=== PATIENT | male | born 1950 | race Caucasian/White ===

== ENCOUNTER 2016-09-10 08:11 | Day surgery (SDC) | payer BC, OTHER ==
[2016-09-10 08:41] VITALS: BMI 25.5
[2016-09-10] MEDS ORDERED: PROPOFOL 20 ML ONE ×2 (08:58)
[2016-09-10] MEDS ORDERED: LIDOCAINE HCL/PF 1% SDV 5ML VIAL ONE (08:58)
[2016-09-10 09:33] VITALS: TEMP 97.7
[2016-09-10 10:22] VITALS: BP 129/73; PULSE 89
--- NOTE | 2016-09-11 13:13 | PATH ---
Surgical Pathology Report Patient Name: ЕЛЕНА FLORES [facility] Rec. #: [id number] /Age/Gender: 1950 (Age: 66) / M Account: [id number] Location: [facility]-ENDOSCOPY Taken: 09/10/2016 Received: 09/10/2016 Reported: 09/11/2016 Physicians: Noe Stephens D.O. Specimen(s) Received A: BX DUODENAL NODULE B: BX ANTRAL NODULES C: BX ANTRUM & BODY D: BX GE JUNCTION Clinical History Acid reflux Duodenal and antral nodules, nodular gastritis, duodenitis Final Diagnosis A. DUODENAL NODULE, BIOPSY: POLYPOID FRAGMENTS OF DUODENAL MUCOSA WITH MARKED ACTIVE AND CHRONIC INFLAMMATION WITH FOCAL SURFACE ULCERATION AND EXTENSIVE GASTRIC METAPLASIA AND SURFACE HYPERPLASTIC CHANGE CONSISTENT WITH POLYPOID ACTIVE PEPTIC DUODENITIS. NEGATIVE FOR DYSPLASIA/ADENOMA. B. STOMACH, ANTRAL NODULE, BIOPSY: GASTRIC ANTRAL MUCOSA WITH MODERATE CHRONIC GASTRITIS WITH LAMINA PROPRIA FIBROSIS AND MARKED REACTIVE GASTROPATHY WITH SURFACE HYPERPLASTIC CHANGE. NEGATIVE FOR DYSPLASIA. IMMUNOSTAIN FOR H. PYLORI IS NEGATIVE FOR ORGANISMS. C. STOMACH, ANTRUM AND BODY, BIOPSY: GASTRIC ANTRAL MUCOSA WITH MODERATE CHRONIC GASTRITIS. IMMUNOSTAIN FOR H. PYLORI IS NEGATIVE FOR ORGANISMS. D. GE JUNCTION, BIOPSY: SQUAMOCOLUMNAR JUNCTIONAL MUCOSA WITH ACTIVE AND CHRONIC INFLAMMATION WITH SURFACE EROSION AND REFLUX TYPE CHANGES. NO DEFINITIVE INTESTINAL METAPLASIA (QUINTANA'S ESOPHAGUS) IDENTIFIED. Electronically Signed Tariq Anderson M.D. Gross Description A. Received in formalin, labeled "biopsy duodenal nodule" are 3 sanchez, irregular portions of soft tissue ranging from 0.1-0.3 cm in greatest dimension. The specimens are submitted in toto in one cassette. B. Received in formalin, labeled "biopsy antral nodule" are 4 sanchez, irregular portions of soft tissue ranging from 0.3-0.4 cm in greatest dimension. The specimens are submitted in toto in one cassette. C. Received in formalin, labeled "biopsy antrum and body" is a sanchez, irregular portion of soft tissue measuring 0.4 cm in greatest dimension. The specimen is submitted in toto in one cassette. D. Received in formalin, labeled "biopsy GE junction" are 2 sanchez, irregular portions of soft tissue measuring 0.1 and 0.3 cm in greatest dimension. The specimens are submitted in toto in one cassette. DL/09/10/2016 [facility]09/10/2016
== END 2016-09-10 10:25 | disposition home or self-care (01) ==
LOC: JASU-ENDO 08:11
PROVIDERS: ATTEND Internal Medicine Gastroenterology
PROC: 0DB98ZX Excision of Duodenum, Via Natural or Artificial Opening Endoscopic, Diagnostic (ICD-10-PCS; 2016-09-10)
PROC: 0DB68ZX Excision of Stomach, Via Natural or Artificial Opening Endoscopic, Diagnostic (ICD-10-PCS; 2016-09-10)
PROC: 0DB48ZX Excision of Esophagogastric Junction, Via Natural or Artificial Opening Endoscopic, Diagnostic (ICD-10-PCS; principal; 2016-09-10 09:00)
DX: K25.9 Gastric ulcer, unspecified as acute or chronic, without hemorrhage or perforation (principal); K29.50 Unspecified chronic gastritis without bleeding
CPT/HCPCS: 36415; 82941; 88305-TC; 88342-TC

== ENCOUNTER 2019-02-14 08:15 | Day surgery (SDC) | payer BC ==
[2019-02-13 13:15] VITALS: BMI 26.1
[2019-02-14 09:44] VITALS: TEMP 98.1
[2019-02-14 10:12] VITALS: PULSE 93
[2019-02-14 10:38] VITALS: BP 136/91
--- NOTE | 2019-02-15 20:22 | PATH ---
Surgical Pathology Report Patient Name: JOHNNY FLORES [facility]. Rec. #: [id number] /Age/Gender: 1950 (Age: 68) / M Account: [id number] Location: [facility]-ENDOSCOPY Taken: 02/13/2019 Received: 02/14/2019 Reported: 02/15/2019 Physicians: Noe Stephens D.O. Specimen(s) Received A: RECTOSIGMOID POLYP B: PROXIMAL TRANSVERSE COLON POLYP C: CECUM POLYP D: SIGMOID COLON POLYP Clinical History Benign neoplasm of colon Postoperative diagnosis: Colon polyps, hemorrhoid Final Diagnosis A. RECTOSIGMOID COLON, POLYP, POLYPECTOMY: SESSILE SERRATED POLYP. B. PROXIMAL TRANSVERSE COLON, POLYP, BIOPSY: TUBULAR ADENOMA. C. CECUM, POLYP, POLYPECTOMY: TUBULAR ADENOMA. D. SIGMOID COLON, POLYP, BIOPSY: HYPERPLASTIC POLYP. Electronically Signed Cat Garza M.D. Gross Description A. Received in formalin, labeled "polyp rectosigmoid" are 3 sanchez-brown polypoid portions of soft tissue ranging from 0.5-0.7 cm. in greatest dimension. The specimens are submitted in toto in one cassette. B. Received in formalin, labeled "biopsy polyp proximal transverse colon" is a sanchez, irregular portion of soft tissue measuring 0.3 cm. in greatest dimension. The specimen is submitted in toto in one cassette. C. Received in formalin, labeled "polyp from cecum" are 2 sanchez, irregular portions of soft tissue measuring 0.2 and 0.4 cm. in greatest dimension. The specimens are submitted in toto in one cassette. D. Received in formalin, labeled "biopsy polyp sigmoid colon" are 2 sanchez, irregular portions of soft tissue measuring 0.2 and 0.3 cm. in greatest dimension. The specimens are submitted in toto in one cassette. 02/14/2019 saudi02/14/2019
== END 2019-02-14 10:36 | disposition home or self-care (01) ==
LOC: JASU-ENDO 08:15
PROVIDERS: ATTEND Internal Medicine Gastroenterology
PROC: 0DBN8ZX Excision of Sigmoid Colon, Via Natural or Artificial Opening Endoscopic, Diagnostic (ICD-10-PCS; 2019-02-14)
PROC: 0DBN8ZX Excision of Sigmoid Colon, Via Natural or Artificial Opening Endoscopic, Diagnostic (ICD-10-PCS; 2019-02-14)
PROC: 0DBH8ZX Excision of Cecum, Via Natural or Artificial Opening Endoscopic, Diagnostic (ICD-10-PCS; principal; 2019-02-14 09:00)
DX: Z86.010 Personal history of colon polyps (principal); D12.0 Benign neoplasm of cecum; D12.3 Benign neoplasm of transverse colon; D21.5 Benign neoplasm of connective and other soft tissue of pelvis; D12.7 Benign neoplasm of rectosigmoid junction; I10 Essential (primary) hypertension; E11.9 Type 2 diabetes mellitus without complications; M10.9 Gout, unspecified; K64.8 Other hemorrhoids
CPT/HCPCS: 88305-TC

== ENCOUNTER 2019-02-28 08:17 | Day surgery (SDC) | payer BC ==
[2019-02-28 08:45] VITALS: BMI 26.6
[2019-02-28 09:37] VITALS: TEMP 97.5
[2019-02-28 11:28] VITALS: BP 119/77; PULSE 87
--- NOTE | 2019-03-01 17:25 | PATH ---
Surgical Pathology Report Patient Name: JOHNNY FLORES [facility]. Rec. #: [id number] /Age/Gender: 1950 (Age: 68) / M Account: [id number] Location: [facility]-ENDOSCOPY Taken: 02/28/2019 Received: 02/28/2019 Reported: 03/01/2019 Physicians: Noe Stephens D.O. Specimen(s) Received A: FIRST PORTION DUODENUM B: PREPYLORIC NODULES C: ANTRUM NODULE D: STOMACH BODY E: ESOPHAGEAL POLYP Clinical History GERD, gastric adenoma Postoperative diagnosis: Gastritis Final Diagnosis A. DUODENUM, FIRST PORTION, BIOPSY: POLYPOID DUODENAL MUCOSA WITH MILD CHRONIC DUODENITIS AND JACOBO'S GLAND HYPERPLASIA. B. PREPYLORIC NODULES, BIOPSY: GASTRIC MUCOSA WITH MILD TO MODERATE CHRONIC GASTRITIS. IMMUNOHISTOCHEMICAL STAIN FOR H. PYLORI IS NEGATIVE. C. STOMACH, ANTRAL NODULE, BIOPSY: GASTRIC ANTRAL MUCOSA WITH MILD CHRONIC GASTRITIS. IMMUNOHISTOCHEMICAL STAIN FOR H. PYLORI IS NEGATIVE. D. STOMACH, BODY, BIOPSY: GASTRIC BODY MUCOSA WITH MILD CHRONIC GASTRITIS. IMMUNOHISTOCHEMICAL STAIN FOR H. PYLORI IS NEGATIVE. E. ESOPHAGEAL POLYP, 25 CM, BIOPSY: SQUAMOUS PAPILLOMA. Electronically Signed Cat Garza M.D. Gross Description A. Received in formalin, labeled "first portion of duodenum biopsy" are 5 sanchez, irregular portions of soft tissue ranging from 0.2-0.4 cm. in greatest dimension. The specimens are submitted in toto in one cassette. B. Received in formalin, labeled "prepyloric nodules" are 4 sanchez, irregular portions of soft tissue ranging from 0.1-0.5 cm. in greatest dimension. The specimens are submitted in toto in one cassette. C. Received in formalin, labeled "antral nodule biopsy" is a sanchez, irregular portion of soft tissue measuring 0.5 cm. in greatest dimension. The specimen is submitted in toto in one cassette. D. Received in formalin, labeled "body of stomach biopsy" are 2 sanchez, irregular portions of soft tissue averaging 0.3 cm. in greatest dimension. The specimens are submitted in toto in one cassette. E. Received in formalin, labeled "esophageal polyp at 25 cm biopsy" are 2 sanchez, irregular portions of soft tissue measuring 0.1 and 0.4 cm. in greatest dimension. The specimens are submitted in toto in one cassette. 02/28/2019 saudi02/28/2019
== END 2019-02-28 10:25 | disposition home or self-care (01) ==
LOC: JASU-ENDO 08:17
PROVIDERS: ATTEND Internal Medicine Gastroenterology
PROC: 0DB68ZX Excision of Stomach, Via Natural or Artificial Opening Endoscopic, Diagnostic (ICD-10-PCS; 2019-02-28)
PROC: 0DB58ZX Excision of Esophagus, Via Natural or Artificial Opening Endoscopic, Diagnostic (ICD-10-PCS; 2019-02-28)
PROC: 0DB98ZX Excision of Duodenum, Via Natural or Artificial Opening Endoscopic, Diagnostic (ICD-10-PCS; principal; 2019-02-28 09:00)
DX: K21.9 Gastro-esophageal reflux disease without esophagitis (principal); K31.7 Polyp of stomach and duodenum; K29.50 Unspecified chronic gastritis without bleeding; K29.80 Duodenitis without bleeding; D13.0 Benign neoplasm of esophagus; I10 Essential (primary) hypertension; E11.9 Type 2 diabetes mellitus without complications; Z79.84 Long term (current) use of oral hypoglycemic drugs
CPT/HCPCS: 82962; 88305-TC; 88342-TC

== ENCOUNTER 2019-07-07 18:44 | Inpatient (IN) | payer BC, OTHER ==
[2019-07-07] MEDS ORDERED: SODIUM CHLORIDE 2,381 ML IV ONE (19:13)
[2019-07-07] MEDS ORDERED: ACETAMINOPHEN 1000 MG/100 ML VIAL (NON FORMULARY) IVPB ONE (19:14)
[2019-07-07 20:37] LABS: VENOUS PC02 40.7 mmHg (38-52); VENOUS PH 7.43 (7.31-7.41)
--- NOTE | 2019-07-07 20:38 | PDOC ---
Documentation entered by Chester Jordan SCRIBE, acting as scribe for Angelica Fregoso MD. Angelica Fregoso MD: This documentation has been prepared by the Nikki acharya Nirvannie, SCRIBE, under my direction and personally reviewed by me in its entirety. I confirm that the documentation accurately reflects all work, treatment, procedures, and medical decision making performed by me. History of Present Illness - General Chief Complaint: Syncope/Near Syncope Stated Complaint: R/O SEPSIS Time Seen by Provider: 07/07/19 19:13 History Source: Patient Exam Limitations: No Limitations - History of Present Illness Initial Comments: 07/07/19 20:39 68YOF with significant past medical history of hypertension, T2DM, GERD, gout, syncope (1 yr ago), chronic urinary frequency, and vertigo(recent diagnosis 1 mo ago) who presents to the ED with near syncope. As per patient, today at approximately 3PM he experienced sudden onset nausea with vomiting prompting him to go to the bathroom at which time he experienced an episode of lightheadedness and generalized weakness. at bedside notes he has been increasingly lethargic /sleepy for the past 1 week and on one occasion going to bed at 7pm. Patient endorses a nasal congestion, nonproductive cough, and issues with his balance when attempting to pick objects up from the floor for the past several weeks. He notes a recent bout of conjunctivitis treated with unknown antibiotics. Family at bedside notes his blood glucose level was 262 and blood pressure was 150/90mmHg (baseline normally 120 systolic) just prior to his arrival. Patient is positive for sick contacts, granddaughter who is up to date with vaccinations and with URI sx. While in the ED, patient endorses a headache and is febrile to 102.1F. Family is unaware if he presented with similar symptoms when he was diagnosed with bilateral pneumonia 30+ years ago. He denies any recent loss of consciousness, visual disturbances, or hearing disturbances. He denies any altered mental status, paresthesias, or focal weakness. Denies chest pain, SOB, palpitation, dizziness, D, abdominal pain, bladder and bowel problems, leg swelling, No travel. No new changes in medications. no trauma. Allergies: Hay fever. Past Medical History: Hypertension, T2DM, GERD, gout, syncope (1 yr ago), chronic urinary frequency, and vertigo(recent diagnosis 1 mo ago) Social history: Lives with family. No tobacco, ETOH or drug use. Surgical history: Appendectomy. Meds: as documented in EMR PMD: Dr. Carlos Rhodes Senior Mobile Web Developer: Dr. Lafleur 07/07/19 22:44 Past History - Past Medical History Allergies/Adverse Reactions: Allergies Allergy/AdvReac Type Severity Reaction Status Date / Time No Known Drug Allergies Allergy Verified 07/07/19 20:32 HAY FEVER Allergy Severe Swelling Uncoded 07/07/19 20:31 Home Medications: Ambulatory Orders Allopurinol [Zyloprim -] 300 mg PO DAILY 09/19/12 Finasteride [Proscar -] 5 mg PO DAILY 09/19/12 Losartan Potassium 100 mg PO DAILY 09/19/12 [place]-3 Acid Ethyl Esters [Lovaza -] 2,000 mg PO BID 09/19/12 Rosuvastatin Calcium [Crestor] 10 mg PO HS 09/19/12 metFORMIN HCL [Glucophage] 1,000 mg PO BID 09/19/12 Sitagliptin Phosphate [Januvia] 1 tab PO DAILY 01/14/15 Aspirin [ASA -] 81 mg PO DAILY #0 01/15/15 Pregabalin [Lyrica] 1 tab PO BID 05/22/15 Acarbose [Precose -] 25 mg PO BID 09/09/16 Ranitidine [Zantac -] 150 mg PO BID 09/09/16 Anemia: No Asthma: No Cancer: No Cardiac Disorders: No CVA: No COPD: No CHF: No Dementia: No Diabetes: Yes (NIDDM) GI Disorders: Yes (H/O GASTRIC ADENOMA,COLON POLYPS) Disorders: No HTN: Yes Hypercholesterolemia: Yes Liver Disease: No Seizures: No Thyroid Disease: No - Surgical History Abdominal Surgery: No Appendectomy: Yes Cardiac Surgery: No Cholecystectomy: No Lung Surgery: No Neurologic Surgery: No Orthopedic Surgery: No - Psycho Social/Smoking Cessation Hx Smoking History: Never smoked Have you smoked in the past 12 months: No Information on smoking cessation initiated: No Hx Alcohol Use: No Drug/Substance Use Hx: No Substance Use Type: None Hx Substance Use Treatment: No Review of Systems - Review of Systems Able to Perform ROS?: Yes Comments:: 07/07/19 20:40 Constitutional: +Fevers. no chills. +generalized malaise/weakness HEENT: +Headache. +dizziness. +congestion. No visual/hearing disturbances. CVS: no cp or syncope. +Pre-syncope. Resp: no sob. +cough. Gastrointestinal: no abdominal pain. + nausea +vomiting. Genitourinary: no urinary sx, hematuria. MUSCULOSKELETAL: No joint pain and swelling. No neck or back pain. SKIN: no redness or skin changes, no discharge, no rash. No wounds. Hematologic: no easy bruising/bleeding. NEUROLOGIC: +PINEDA, +dizziness, No LOC or altered mental status. +Weakness. No numbness or tingling. Psych: no anxiety or depression Allergic/Immunologic: environmental allergies All other systems reviewed and negative, or as documented in HPI. 07/07/19 22:45 *Physical Exam - Vital Signs Last Vital Signs Temp Pulse Resp BP Pulse Ox 102.1 F H 132 H 20 159/83 97 07/07/19 19:09 07/07/19 18:49 07/07/19 18:49 07/07/19 18:49 07/07/19 18:49 - Physical Exam 07/07/19 20:40 General: +Malaise appearing. awake and alert HEENT: NCAT, PERRL, EOMI, clear conjunctiva, anicteric, dry mucous membranes, clear oropharynx, no oral lesions.. Neck: neck supple, FROM Resp: CTAB, normal and even respirations, no respiratory distress CVS: +Tachycardic. +Holosystolic murmur., 2+ peripheral pulses throughout, no peripheral edema Abdomen: soft, NTND, no rebound or guarding. No CVAT. Back: nontender, normal inspection and ROM MSK: no edema, WHITE x4, ROM intact. No clubbing or cyanosis. normal bulk and tone. Extremities: no calf tenderness Neuro: alert, oriented appropriately; no focal neurologic deficits, speech clear Skin: warm and well perfused, cap refill <2 sec, normal color, no rash 07/07/19 22:46 Heart Score/ECG Review #1 07/07/19 19:25 EKG performed at 18:54: Sinus tachycardia at 133 bpm, Normal DC interval, Narrow QRS duration, nonspecific T-wave abnormalities. ED Treatment Course - LABORATORY CBC & Chemistry Diagram: 07/07/19 20:10 07/07/19 20:10 - RADIOLOGY Radiology Studies Ordered: Category Date Time Status CHEST X-RAY PORTABLE* [RAD] Stat Radiology 07/07/19 19:14 Taken Chest X-Ray Result: No Infiltrates Radiograph Interpretation: 07/07/19 20:38 Interpreted by ED Physician: CXR (2 view): no acute abnormality: no infiltrates , bones appear intact and structures normal alignment, cardiac silhouette within normal limits. no free air under diaphragm, no pneumothorax. Similar to prior chest x-ray Medical Decision Making - Medical Decision Making 07/07/19 20:37 Vital Signs Temp Pulse Resp BP Pulse Ox 102.1 F H 132 H 20 159/83 97 07/07/19 19:09 07/07/19 18:49 07/07/19 18:49 07/07/19 18:49 07/07/19 18:49 Vital signs notable for fever and tachycardia, normal saturations and breathing comfortably. Patient is alert and oriented appropriately, no respiratory distress. Differential diagnosis includes viral syndrome, upper respiratory infection, pneumonia, influenza, ACS, arrhythmia, dehydration, anemia, electrolyte/ metabolic derangements, infection, syncope No trauma or head injury Basic work-up including labs, electrolytes, lactic, cultures of the urine/blood , influenza swab, chest x-ray Chest x-ray appears clear no evidence of pneumonia, trachea is midline, normal cardiac silhouette, no focal opacities or infiltrate or consolidation, clear sharp costophrenic angles will do CT chest to eval for PNA. given severity of sx lactic 2.6, will hydrate and recheck given sepsis bolus of fluids >2L NSS leukocytosis 13.4K, with neutrophilic shift. lytes and Cr wnl. cultures pending. repeat VS improving, tachy downtrending to 115, defervescing, additional toradol for antipyretic flu neg. CT chest with RLL infiltrate, will treat as early pna, ceftriaxone and azithromycin for CAP admit to hospitalist service for near syncope, severe sepsis likely 2/2 viral syndrome/URI vs pneumonia, will treat for the CAP given clinical presentation and sx. admitting to Dr Keith. s.o Dr Mei/William. 07/07/19 22:46 07/07/19 22:51 Discharge - Discharge Information Problems reviewed: Yes Clinical Impression/Diagnosis: Syncope, near, Severe sepsis, Pneumonia Condition: Guarded - Admission Yes - Follow up/Referral - Patient Discharge Instructions - Post Discharge Activity
[2019-07-07 20:39] LABS: VENOUS PO2 52.8 mmHg (28-48)
[2019-07-07 20:48] LABS: BASO % 0.4 % (0-2.0); EOS % 0.2 % (0-4.5); HEMATOCRIT 37.4 % (35.4-49); HEMOGLOBIN 12.5 GM/dL (11.7-16.9); LYMPH % 5.7 % (8-40); MCH 28.9 pg (25.7-33.7); MCHC 33.4 g/dl (32.0-35.9); MEAN CELL VOLUME 86.6 fl (80-96); MEAN PLT VOLUME 8.5 fl (7.5-11.1); MONO % 5.6 % (3.8-10.2); NEUT % 88.1 % (42.8-82.8); PLATELET COUNT 164 K/MM3 (134-434); RBC 4.32 M/mm3 (4.00-5.60); RDW 16.5 % (11.9-15.9); WHITE BLOOD COUNT 13.4 K/mm3 (4.0-10.0)
[2019-07-07 21:15] LABS: ALBUMIN 3.7 g/dl (3.4-5.0); BILIRUBIN,TOTAL 0.5 mg/dL (0.2-1); BLOOD UREA NITROGEN 33.2 mg/dL (7-18); CALCIUM 9.3 mg/dL (8.5-10.1); CREATININE 1.3 mg/dL (0.55-1.3); POTASSIUM 3.5 mmol/L (3.5-5.1); TOT PROT 6.9 g/dl (6.4-8.2)
[2019-07-07] MEDS ORDERED: CEFTRIAXONE 1,000 MG in DEXTROSE 5%-WATER - 50 ML IVPB ONE (21:38)
[2019-07-07] MEDS ORDERED: AZITHROMYCIN 500 MG TABLET PO ONE (21:38)
[2019-07-07] MEDS ORDERED: CEFTRIAXONE 1 GM/50 ML BAG ONE (21:42)
[2019-07-07] MEDS ORDERED: AZITHROMYCIN 250 MG TABLET ONE (21:42)
--- NOTE | 2019-07-07 22:33 | PN ---
Teaching Attending Note Name of Resident: Al Mei ATTENDING PHYSICIAN STATEMENT I saw and evaluated the patient. I reviewed the resident's note and discussed the case with the resident. I agree with the resident's findings and plan as documented. SUBJECTIVE: Patient is a 68 year old woman with a PMH of NIDDM, Hypertension, GERD, Gout, Syncope (1 yr ago), Chronic urinary frequency, and Vertigo (recent diagnosis 1 month ago) who presents to the ER after an episode of near syncope. As per patient, today at approximately 3PM he experienced sudden onset nausea with vomiting prompting him to go to the bathroom at which time he experienced an episode of pre-syncope and felt increasingly weak. at bedside notes he has been increasingly lethargic for the past 7-10 days and on one occasion going to bed at 7pm. Patient has nasal congestion, nonproductive cough, and issues with his balance when attempting to pick objects up from the floor for the past several weeks. He notes a recent bout of conjunctivitis treated with unknown antibiotics. Family at bedside notes his blood glucose level was 262 and blood pressure was 150/90 mmHg (baseline normally 120 systolic) just prior to his arrival. Patient is positive for sick contacts - granddaughter who is up to date with vaccinations. While in the ER, patient complains of headache and is febrile to 102.1F. He denies any recent loss of consciousness, visual disturbances, or hearing disturbances. He denies any altered mental status, paresthesias, or focal weakness. Denies chest pain, SOB, palpitation, dizziness, abdominal pain, bladder problems or leg swelling. Has had constipation. No travel. No new changes in medications. OBJECTIVE: Alert and not orthostatic Vital Signs Period Temp Pulse Resp BP Sys/Flores Pulse Ox Last 24 Hr 97.4 F-102.1 F 132 20 159/83 97 HEENT: No Jaundice, eye redness or discharge, PERRLA, EOMI. Normocephalic, atraumatic. External ears are normal and hearing is grossly intact. No nasal discharge. Neck: Supple, nontender. No palpable adenopathy or thyromegaly. No JVD Chest: Good effort. Clear to auscultation and percussion. Heart: Regular. No S3 or rub; 2/6 HSM Abdomen: Not distended, soft, nontender and no HSM. No rebound or guarding. Normal bowel sounds. Ext: Peripheral pulses intact. No leg edema. Amputated left 4h digit. Skin: Warm and dry. No petechiae, rash or ecchymosis. Neuro: Alert. Oriented x3. CN 2-12 grossly intact. Sensation grossly intact in all four extremities and DTR are symmetric. Psych: Appropriate mood and affect. Good insight. Home Medications Medication Instructions Recorded Allopurinol [Zyloprim -] 300 mg PO DAILY 09/19/12 Finasteride [Proscar -] 5 mg PO DAILY 09/19/12 Losartan Potassium 100 mg PO DAILY 09/19/12 [place]-3 Acid Ethyl Esters [Lovaza 2,000 mg PO BID 09/19/12 -] Rosuvastatin Calcium [Crestor] 10 mg PO HS 09/19/12 metFORMIN HCL [Glucophage] 1,000 mg PO BID 09/19/12 Sitagliptin Phosphate [Januvia] 1 tab PO DAILY 01/14/15 Aspirin [ASA -] 81 mg PO DAILY #0 01/15/15 Pregabalin [Lyrica] 1 tab PO BID 05/22/15 Acarbose [Precose -] 25 mg PO BID 09/09/16 Ranitidine [Zantac -] 150 mg PO BID 09/09/16 Abnormal Lab Results 07/07/19 07/07/19 07/07/19 20:03 20:10 20:10 WBC 13.4 H RDW 16.5 H Absolute Neuts (auto) 11.9 H Neutrophils % 88.1 H D Lymphocytes % 5.7 L D VBG pH POC VBG pO2 VBG O2 Sat (Annette) VBG Base Excess BUN 33.2 H Random Glucose 234 H Lactic Acid 2.6 H* 07/07/19 20:10 WBC RDW Absolute Neuts (auto) Neutrophils % Lymphocytes % VBG pH 7.43 H POC VBG pO2 52.8 H VBG O2 Sat (Annette) 82.2 H VBG Base Excess 2.6 H BUN Random Glucose Lactic Acid ASSESSMENT AND PLAN: 1. Sepsis due to Pneumonia/Near syncope - CXR shows no acute abnormality. preliminary reading of chest CT by ER staff showed RLL infiltrate. Flu swab was negative. EKG shows sinus tachycardia with no significant ST-T wave changes. Sepsis workup done and patient being treated with IV Rocephin and Azithromycin. Near syncope likely signals toxic metabolic encephalopathy due to sepsis. No indication for head CT at this time - if he fails to return to his baseline with hydration and antibiotics, then a head CTt will be warranted. Getting IV NS according to sepsis protocol and will trend lactic acid. Use Miralax bid to treat constipation. Will continue comprehensive care for all of patients comorbid conditions. 2. Uncontrolled DM For now, we will hold the home diabetes drugs and implement sliding scale insulin regimen. Provide comprehensive diabetes care with patient teaching and counseling about the importance of adherence to prescribed diabetes regimen, euglycemia, eye care and foot care. 3. Hypertension - Restart suitable outpatient antihypertensive drugs when clinically appropriate. Revise regimen to ensure [id number] excellent BP control and school adjustment counselor patient on the injurious effects of uncontrolled hypertension. Nonpharmacologic measures to control hypertension like weight loss , salt restriction and exercise discussed. Importance of adherence to treatment regimen and attainment of normotension emphasized. 4. DVT prophylaxis - Lovenox 40 mg SQ q 24 hours. 5. Advance directives - Full code
[2019-07-07] MEDS ORDERED: KETOROLAC TROMETHAMINE 15 MG/ML VIAL IVPUSH ONE (22:44)
[2019-07-07] MEDS ORDERED: KETOROLAC TROMETHAMINE 15 MG/ML VIAL ONE (22:52)
[2019-07-07 23:06] LABS: EPI CELLS 0.9 /HPF (0-5/HPF); HYALINE CASTS 1 /lpf (0-8); URINE APPEARANCE CLEAR; URINE BACTERIA 0 /hpf (NEGATIVE); URINE BILIRUBIN NEGATIVE (NEGATIVE); URINE COLOR YELLOW; URINE GLUCOSE (UA) NEGATIVE (NEGATIVE); URINE KETONE NEGATIVE (NEGATIVE); URINE LEUK ESTERASE NEGATIVE (NEGATIVE); URINE NITRITE NEGATIVE (NEGATIVE); URINE PROTEIN 2+ (NEGATIVE); URINE RBC 1 /hpf (0-4); URINE UROBILINOGEN 0.2 mg/dL (0.2-1.0); URINE WBC 1 /hpf (0-5)
--- NOTE | 2019-07-07 23:20 | HP ---
CHIEF COMPLAINT: Feeling unwell suddenly PCP: Dr. Carlos Rhodes Card: Dr. Lafleur Endo: Dr. Humphrey HISTORY OF PRESENT ILLNESS: 68 y/o male PMH HTN, DM2, GERD, gout, and vertigo c/o of acute onset of vague constitutional symptoms followed by period of confusion. Pt states he was in his basement level wood-shop around 14:00 on 07 Jul 2019, when he suddenly felt chills and no other symptoms. He then went home, proceeded to attempt a BM and began to sweat, feel cold, and felt weak. He did not complete his BM and afterwards his noticed slurred speech/mumbling. He never lost consciousness, had no tongue biting, aura, numbness/tingling or vision change. He states he also developed a non-productive cough. His sweating continued and he came to the ED. In the ED his rectal temp was 103.1, was tachycardic 115, and he was tachypnic 20. He denies night sweats, weight loss, and fever. He has been nauseous, vomiting clear stomach content (NBNB). Denies fever, travel, new food/meds/herbs/supplements. He denies vision changes, SOB, CP and abdominal pain. 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 HAY FEVER Allergy (Severe, Uncoded 07/07/19 20:31) Swelling HOME MEDICATIONS: Medication Instructions Recorded Allopurinol [Zyloprim -] 300 mg PO DAILY 09/19/12 Finasteride [Proscar -] 5 mg PO DAILY 09/19/12 Losartan Potassium 100 mg PO DAILY 09/19/12 Hurley-3 Acid Ethyl Esters[Lovaza 2,000 mg PO BID 09/19/12 Rosuvastatin Calcium [Crestor] 10 mg PO HS 03/04/13 metFORMIN HCL [Glucophage] 1,000 mg PO BID 09/19/12 Sitagliptin Phosphate [Januvia] 1 tab PO DAILY 01/14/15 Aspirin [ASA -] 81 mg PO DAILY #0 01/15/15 Pregabalin [Lyrica] 1 tab PO BID 05/22/15 Acarbose [Precose -] 25 mg PO BID 09/09/16 Ranitidine [Zantac -] 150 mg PO BID 09/09/16 REVIEW OF SYSTEMS CONSTITUTIONAL: Absent: fever, chills, diaphoresis, generalized weakness, malaise, loss of appetite, weight change HEENT: Absent: rhinorrhea, nasal congestion, throat pain, throat swelling, difficulty swallowing, mouth swelling, ear pain, eye pain, visual changes CARDIOVASCULAR: Absent: chest pain, syncope, palpitations, irregular heart rate, lightheadedness , peripheral edema RESPIRATORY: Absent: cough, shortness of breath, dyspnea with exertion, orthopnea, wheezing, stridor, hemoptysis GASTROINTESTINAL: Absent: abdominal pain, abdominal distension, nausea, vomiting, diarrhea, constipation, melena, hematochezia GENITOURINARY: Absent: dysuria, frequency, urgency, hesitancy, hematuria, flank pain, genital pain MUSCULOSKELETAL: Absent: myalgia, arthralgia, joint swelling, back pain, neck pain SKIN: Absent: rash, itching, pallor HEMATOLOGIC/IMMUNOLOGIC: Absent: easy bleeding, easy bruising, lymphadenopathy, frequent infections ENDOCRINE: Absent: unexplained weight gain, unexplained weight loss, heat intolerance, cold intolerance NEUROLOGIC: Absent: headache, focal weakness or paresthesias, dizziness, unsteady gait, seizure, mental status changes, bladder or bowel incontinence PSYCHIATRIC: Absent: anxiety, depression, suicidal or homicidal ideation, hallucinations. PHYSICAL EXAMINATION Vital Signs - 24 hr 07/07/19 07/07/19 07/07/19 18:49 19:09 22:38 Temperature 97.4 F L 102.1 F H Pulse Rate 132 H Pulse Rate [ 115 H Right] Respiratory 20 20 Rate Blood Pressure 159/83 Blood Pressure 116/71 [Right Arm] O2 Sat by Pulse 97 95 Oximetry (%) 07/07/19 22:45 Temperature 100.1 F H Pulse Rate Pulse Rate [ Right] Respiratory Rate Blood Pressure Blood Pressure [Right Arm] O2 Sat by Pulse Oximetry (%) GENERAL: AOx3, in no acute distress. HEAD: NCAT EYES: MARI, EOMI, conjunctiva clear. ENT: Ears normal, nares patent, oropharynx clear without exudates. Moist mucous membranes. NECK: Normal range of motion, supple without lymphadenopathy, JVD, or masses. LUNGS: CTAB. No wheezes, and no crackles. No accessory muscle use. HEART: RRR s1 s2 ABDOMEN: Soft, obese, BS present in all 4 quadrants, non-distended, no JVD, MUSCULOSKELETAL: No bony deformities or tenderness. No CVA tenderness. UPPER EXTREMITIES: LEFT 4th digit amputated at 4th digit. 2+ pulses, warm, well- perfused. No cyanosis. No clubbing. No peripheral edema. LOWER EXTREMITIES: 2+ pulses, warm, well-perfused. No calf tenderness. No peripheral edema. NEUROLOGICAL: No focal deficits. Cranial nerves II-XII intact. Normal speech. Gait not appreciated. PSYCHIATRIC: Cooperative. Good eye contact. Appropriate mood and affect. SKIN: Warm, dry, normal turgor, no rashes or lesions noted, normal capillary refill. Laboratory Results - last 24 hr 07/07/19 07/07/19 07/07/19 20:03 20:10 20:10 WBC 13.4 H RBC 4.32 Hgb 12.5 Hct 37.4 MCV 86.6 MCH 28.9 MCHC 33.4 RDW 16.5 H Plt Count 164 MPV 8.5 D Absolute Neuts (auto) 11.9 H Neutrophils % 88.1 H D Lymphocytes % 5.7 L D Monocytes % 5.6 Eosinophils % 0.2 D Basophils % 0.4 Nucleated RBC % 0 VBG pH POC VBG pCO2 POC VBG pO2 VBG HCO3 VBG O2 Sat (Annette) VBG Base Excess Sodium Potassium Chloride Carbon Dioxide Anion Gap BUN Creatinine Est GFR (CKD-EPI)AfAm Est GFR (CKD-EPI)NonAf Random Glucose Lactic Acid 2.6 H* Calcium Total Bilirubin AST ALT Alkaline Phosphatase Troponin I < 0.02 Total Protein Albumin Urine Color Urine Appearance Urine pH Ur Specific [place] Urine Protein Urine Glucose (UA) Urine Ketones Urine Blood Urine Nitrite Urine Bilirubin Urine Urobilinogen Ur Leukocyte Esterase Urine WBC (Auto) Urine RBC (Auto) Urine Casts (Auto) U Epithel Cells (Auto) Urine Bacteria (Auto) Influenza A (Rapid) Influenza B (Rapid) 07/07/19 07/07/19 07/07/19 20:10 20:10 20:10 WBC RBC Hgb Hct MCV MCH MCHC RDW Plt Count MPV Absolute Neuts (auto) Neutrophils % Lymphocytes % Monocytes % Eosinophils % Basophils % Nucleated RBC % VBG pH 7.43 H POC VBG pCO2 40.7 POC VBG pO2 52.8 H VBG HCO3 26.6 VBG O2 Sat (Annette) 82.2 H VBG Base Excess 2.6 H Sodium 138 Potassium 3.5 Chloride 102 Carbon Dioxide 27 Anion Gap 9 BUN 33.2 H Creatinine 1.3 Est GFR (CKD-EPI)AfAm 64.52 Est GFR (CKD-EPI)NonAf 55.67 Random Glucose 234 H Lactic Acid Calcium 9.3 Total Bilirubin 0.5 AST 18 ALT 26 Alkaline Phosphatase 84 Troponin I Total Protein 6.9 Albumin 3.7 Urine Color Urine Appearance Urine pH Ur Specific [place] Urine Protein Urine Glucose (UA) Urine Ketones Urine Blood Urine Nitrite Urine Bilirubin Urine Urobilinogen Ur Leukocyte Esterase Urine WBC (Auto) Urine RBC (Auto) Urine Casts (Auto) U Epithel Cells (Auto) Urine Bacteria (Auto) Influenza A (Rapid) Negative Influenza B (Rapid) Negative 07/07/19 22:00 WBC RBC Hgb Hct MCV MCH MCHC RDW Plt Count MPV Absolute Neuts (auto) Neutrophils % Lymphocytes % Monocytes % Eosinophils % Basophils % Nucleated RBC % VBG pH POC VBG pCO2 POC VBG pO2 VBG HCO3 VBG O2 Sat (Annette) VBG Base Excess Sodium Potassium Chloride Carbon Dioxide Anion Gap BUN Creatinine Est GFR (CKD-EPI)AfAm Est GFR (CKD-EPI)NonAf Random Glucose Lactic Acid Calcium Total Bilirubin AST ALT Alkaline Phosphatase Troponin I Total Protein Albumin Urine Color Yellow Urine Appearance Clear Urine pH 5.0 D Ur Specific [place] 1.020 Urine Protein 2+ H Urine Glucose (UA) Negative Urine Ketones Negative Urine Blood Negative Urine Nitrite Negative Urine Bilirubin Negative Urine Urobilinogen 0.2 Ur Leukocyte Esterase Negative Urine WBC (Auto) 1 Urine RBC (Auto) 1 Urine Casts (Auto) 1 U Epithel Cells (Auto) 0.9 Urine Bacteria (Auto) 0 Influenza A (Rapid) Influenza B (Rapid) ASSESSMENT/PLAN: 68 y/o male PMH HTN, DM2, GERD, gout, and vertigo c/o of acute onset of vague constitutional symptoms followed by period of confusion. # Sepsis possibly 2/2 toxic metabolic encephalopathy - Cont. IVF - CXR NEGATIVE - Chest CT possibly consistent with RLL infiltrate - Flu swab NEGATIVE - Cont Rocephin - Azithromycin # DM - Hold home regimen - ISS ACHS # HTN - Cont. curent home regimen # HLD - Cont. curent home regimen # F/E/N - NS at 75 cc/hour - Cont. to monitor - DM diet with low sodium modification # DVT prophylaxis - Lovenox SQ # Disposition - Admit to med/surg Al Mei MD Visit type - Emergency Visit Emergency Visit: Yes ED Registration Date: 07/07/19 Care time: The patient presented to the Emergency Department on the above date and was hospitalized for further evaluation of their emergent condition. - New Patient This patient is new to me today: Yes Date on this admission: 07/23/19 - Critical Care Critical Care patient: No ATTENDING PHYSICIAN STATEMENT I saw and evaluated the patient. I reviewed the resident's note and discussed the case with the resident. I agree with the resident's findings and plan as documented. SUBJECTIVE: OBJECTIVE: ASSESSMENT AND PLAN:
[2019-07-08] MEDS: SODIUM CHLORIDE 1,000 ML IV SCH ×2 (03:20→18:04)
[2019-07-08 03:50] VITALS: BMI 27.4
[2019-07-08] MEDS ORDERED: PNEUMOC 13-VAL CONJ-DIP CRM/PF 0.5 ML DISP.SYRIN IM ONE (06:00)
[2019-07-08] MEDS ORDERED: FLU VACCINE QUAD 60 MCG/0.5 ML (MDV 19-20) IM ONE (06:00)
[2019-07-08] MEDS: INSULIN SLIDING SCALE (NOVOLOG) 1 VIAL SQ SCH ×3 (09:23→18:02)
[2019-07-08 09:35] LABS: BASO % 0.6 % (0-2.0); EOS % 2.2 % (0-4.5); HEMATOCRIT 36.7 % (35.4-49); HEMOGLOBIN 12.4 GM/dL (11.7-16.9); LYMPH % 23.8 % (8-40); MCH 29.2 pg (25.7-33.7); MCHC 33.8 g/dl (32.0-35.9); MEAN CELL VOLUME 86.3 fl (80-96); MEAN PLT VOLUME 8.3 fl (7.5-11.1); MONO % 11.2 % (3.8-10.2); NEUT % 62.2 % (42.8-82.8); PLATELET COUNT 148 K/MM3 (134-434); RBC 4.25 M/mm3 (4.00-5.60); RDW 17.2 % (11.9-15.9); WHITE BLOOD COUNT 7.7 K/mm3 (4.0-10.0)
[2019-07-08] MEDS ORDERED: ENOXAPARIN NA (PORCINE) 40 MG/0.4 ML DISP.SYRIN SQ SCH (10:00)
[2019-07-08 10:13] LABS: ALBUMIN 3.4 g/dl (3.4-5.0); BILIRUBIN,TOTAL 0.7 mg/dL (0.2-1); BLOOD UREA NITROGEN 36.9 mg/dL (7-18); CALCIUM 9.3 mg/dL (8.5-10.1); CREATININE 1.3 mg/dL (0.55-1.3); POTASSIUM 3.7 mmol/L (3.5-5.1); TOT PROT 6.6 g/dl (6.4-8.2)
--- NOTE | 2019-07-08 12:57 | PN ---
Progress Note, Physician Chief Complaint: doing better today, no chills no fever, - Current Medication List Current Medications: Active Medications Enoxaparin Sodium (Lovenox -) 40 mg SQ DAILY [facility] Last Admin: 07/08/19 09:25 Dose: 40 mg Sodium Chloride (Normal Saline -) 1,000 mls @ 75 mls/hr IV ASDIR [facility] Last Admin: 07/08/19 03:20 Dose: 75 mls/hr Insulin Aspart (Novolog Vial Sliding Scale -) 1 vial SQ TIDAC [facility]; Protocol Last Admin: 07/08/19 12:03 Dose: Not Given - Objective Vital Signs: Vital Signs Temperature 97.5 F L 07/08/19 06:00 Pulse Rate 93 H 07/08/19 06:00 Respiratory Rate 20 07/08/19 06:00 Blood Pressure 125/77 07/08/19 06:00 O2 Sat by Pulse Oximetry (%) 95 07/08/19 01:14 Constitutional: Yes: Well Nourished, No Distress Eyes: Yes: Conjunctiva Clear, EOM Intact HENT: Yes: Atraumatic, Normocephalic Neck: Yes: Supple, Trachea Midline Cardiovascular: Yes: Regular Rate and Rhythm Respiratory: Yes: Regular, CTA Bilaterally Gastrointestinal: Yes: Normal Bowel Sounds Edema: No Neurological: Yes: WNL Labs: CBC, BMP 07/08/19 08:52 07/08/19 08:45 Impression/Plan Impression/Plan: ASSESSMENT/PLAN: 68 y/o male PMH HTN, DM2, GERD, gout, and vertigo c/o of acute onset of vague constitutional symptoms followed by period of confusion. 1. Pneumonia, - Cont. IVF - CXR NEGATIVE - Chest CT consistent with RML infiltrate - Flu swab NEGATIVE - Cont Rocephin - Azithromycin discussed with the at the bedside , and will see the cardiology, and bc has a systolic murmur at the mitral area, also for the pre syncope, call dr chappell, if pt stable tomorrow, will be dced home tomorrow, 2 DM - resume home meds, - ISS ACHS 3 HTN - Controlled. resume home meds, 4 HLD - Cont. current meds, 5, h/o gout, ressume allopurinol 6, diabetic neuropathy, resume lyrica, # F/E/N - NS at 75 cc/hour - Cont. to monitor - DM diet with low sodium modification # DVT prophylaxis - Lovenox SQ Visit type - Emergency Visit Emergency Visit: No - New Patient This patient is new to me today: Yes Date on this admission: 07/08/19 - Critical Care Critical Care patient: No - Discharge Referral Referred to [facility] No
--- NOTE | 2019-07-08 14:12 | EKG ---
Test Reason : Blood Pressure : / mmHG Vent. Rate : 133 BPM Atrial Rate : 133 BPM P-R Int : 128 ms QRS Dur : 082 ms QT Int : 366 ms P-R-T Axes : 000 -04 046 degrees QTc Int : 544 ms SINUS TACHYCARDIA SEPTAL INFARCT , AGE UNDETERMINED ABNORMAL ECG WHEN COMPARED WITH ECG OF 08-JUN-2013 16:05, SEPTAL INFARCT IS NOW PRESENT NONSPECIFIC T WAVE ABNORMALITY NOW EVIDENT IN LATERAL LEADS Confirmed by VLAD SALINAS MD ([id number]) on 07/08/2019 2:12:17 PM Referred By: Confirmed By:VLAD SALINAS MD
[2019-07-08] MEDS ORDERED: metFORMIN HCL 500 MG TABLET (FP) PO SCH (16:30)
[2019-07-08] MEDS ORDERED: PREGABALIN 100 MG CAPSULE PO SCH (22:00)
[2019-07-09 03:17] VITALS: BP 147/90; PULSE 98; TEMP 98.4
--- NOTE | 2019-07-09 04:34 | PN ---
Progress Note (short form) - Note Progress Note: Called to see patient as he stated he would like to sign out AMA. Patient states he is tired of his roommate who is constantly on the phone and he is not able to get any rest because of this. Patient was offered the option of being moved to a different room on the 7th floors but was not amenable to this idea and wanted to leave regardless of room placement. Patient's was present as well. Explained to the patient the risks of leaving against medical advice including worsening of his pneumonia, developing difficulty breathing, chest pain, SOB, fever, chills, . Patient understanding of risks and stated he would still like to leave. Patient AAOx3, has full competency, present to safely take patient home. 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 Patient stated he promised to follow up with them. Patient signed AMA form. Explained to patient that I will send abx prescription for him to poultry picker at his preferred pharmacy. Patient stated he would poultry picker the abx in the morning. As patient's QTc was prolonged on EKG, prescribed patient Cefdinir BID for 7 days and Doxycycline BID for 7 days.
[2019-07-09] MEDS ORDERED: sitaGLIPtin PHOSPHATE 50 MG TABLET PO SCH (07:00)
[2019-07-09] MEDS ORDERED: HYDROCHLOROTHIAZIDE 25 MG TABLET (FP) PO SCH (10:00)
[2019-07-09] MEDS ORDERED: LOSARTAN POTASSIUM 50 MG TABLET (FP) PO SCH (10:00)
[2019-07-09] MEDS ORDERED: FINASTERIDE 5 MG TABLET (FP) PO SCH (10:00)
[2019-07-09] MEDS ORDERED: ASPIRIN 81 MG CHEWABLE TABLETS PO SCH (10:00)
[2019-07-09] MEDS ORDERED: ALLOPURINOL 300 MG TABLET (FP) PO SCH (10:00)
== END 2019-07-09 04:16 | disposition left against medical advice (07) | DRG 871 ==
LOC: JER 18:44 → JERBED 22:23 → J8W 07-08 02:58
PROVIDERS: ADMIT Internal Medicine; ATTEND Internal Medicine
DX: A41.89 Other specified sepsis (principal); G93.41 Metabolic encephalopathy; J18.9 Pneumonia, unspecified organism; R55 Syncope and collapse; E11.9 Type 2 diabetes mellitus without complications; I10 Essential (primary) hypertension; K21.9 Gastro-esophageal reflux disease without esophagitis; M10.9 Gout, unspecified; R35.0 Frequency of micturition; K63.5 Polyp of colon; E11.65 Type 2 diabetes mellitus with hyperglycemia; R00.0 Tachycardia, unspecified; R50.9 Fever, unspecified; Z89.422 Acquired absence of other left toe(s); E11.40 Type 2 diabetes mellitus with diabetic neuropathy, unspecified
CPT/HCPCS: 36415; 71045-TC-FY; 71250-TC; 80053; 81003; 82803; 82962; 83605; 83735; 84484; 85025; 87040; 87086; 87804; 90670; 93005; 93010; 97116-GP; 97161-GP; 99285-25; G0008; G0009; J0131; J7030; Q2036

== ENCOUNTER 2022-11-16 04:47 | Day surgery (SDC) | payer OTHER, BC ==
[2022-11-13 09:52] VITALS: BMI 27.9
[2022-11-16 09:07] VITALS: TEMP 98
[2022-11-16 09:54] VITALS: BP 143/64; PULSE 61; RESP 12
== END 2022-11-16 10:06 | disposition home or self-care (01) ==
LOC: JASU-ENDO 04:47
PROVIDERS: ATTEND Internal Medicine Gastroenterology
PROC: 0D5L8ZZ Destruction of Transverse Colon, Via Natural or Artificial Opening Endoscopic (ICD-10-PCS; 2022-11-16)
PROC: 0DB68ZX Excision of Stomach, Via Natural or Artificial Opening Endoscopic, Diagnostic (ICD-10-PCS; 2022-11-16)
PROC: 0D5N8ZZ Destruction of Sigmoid Colon, Via Natural or Artificial Opening Endoscopic (ICD-10-PCS; principal; 2022-11-16 08:00)
DX: Z12.11 Encounter for screening for malignant neoplasm of colon (principal); Z86.010 Personal history of colon polyps; D12.5 Benign neoplasm of sigmoid colon; D12.3 Benign neoplasm of transverse colon; K64.8 Other hemorrhoids; K29.50 Unspecified chronic gastritis without bleeding; K29.80 Duodenitis without bleeding
CPT/HCPCS: 82962; 88305-TC; 88342-TC

== ENCOUNTER 2023-11-01 06:00 | Day surgery (SDC) | payer OTHER, BC ==
[2023-10-28 11:28] VITALS: BMI 26.2
[2023-11-01 08:20] VITALS: TEMP 98.4
[2023-11-01 08:46] LABS: HEMATOCRIT 41.2 % (35.4-49); HEMOGLOBIN 13.6 GM/dL (11.7-16.9); MCH 29.5 pg (25.7-33.7); MCHC 32.9 g/dl (32.0-35.9); MEAN CELL VOLUME 89.4 fl (80-96); MEAN PLT VOLUME 7.5 fl (7.5-11.1); PLATELET COUNT 182 10^3/uL (134-434); RBC 4.61 M/mm3 (4.00-5.60); RDW 16.2 % (11.9-15.9); WHITE BLOOD COUNT 6.1 K/mm3 (4.0-10.0)
[2023-11-01 08:49] LABS: INR 1.03 (0.83-1.09); PROTHROMBIN TIME (PATIENT) 11.9 SEC (9.7-13.0)
[2023-11-01 09:09] LABS: POTASSIUM 3.9 mmol/L (3.5-5.1)
[2023-11-01 09:10] LABS: BLOOD UREA NITROGEN 35.7 mg/dL (7-18); CALCIUM 9.8 mg/dL (8.5-10.1)
[2023-11-01 09:14] LABS: CREATININE 1.8 mg/dL (0.55-1.3)
[2023-11-01] MEDS ORDERED: MIDAZOLAM HCL 2 MG/2 ML SINGLE DOSE VIAL ONE (09:39)
[2023-11-01] MEDS ORDERED: FENTANYL CITRATE/PF 50 MCG/ML VIAL ONE (09:40)
[2023-11-01] MEDS ORDERED: FENTANYL CITRATE/PF 50 MCG/ML VIAL IVPUSH ONE (10:39)
[2023-11-01] MEDS ORDERED: MIDAZOLAM HCL 2 MG/2 ML SINGLE DOSE VIAL IVPUSH ONE (10:39)
[2023-11-02 01:58] VITALS: BP 134/79; PULSE 81; RESP 17
== END 2023-11-01 12:35 | disposition home or self-care (01) ==
LOC: JRADIR 06:00
PROVIDERS: ATTEND Internal Medicine Nephrology
PROC: 0TB03ZX Excision of Right Kidney, Percutaneous Approach, Diagnostic (ICD-10-PCS; principal; 2023-11-01)
DX: E11.21 Type 2 diabetes mellitus with diabetic nephropathy (principal)
CPT/HCPCS: 36415; 50200; 80048; 82962; 85027; 85610; 88300-TC; 88329

== ENCOUNTER 2024-07-20 17:09 | Inpatient (IN) | payer OTHER, BC ==
[2024-07-20 17:28] VITALS: BMI 28.3
[2024-07-20 18:25] LABS: BASO % 0.9 % (0-2.0); EOS % 2.9 % (0-4.5); HEMATOCRIT 43.5 % (35.4-49); HEMOGLOBIN 14.5 GM/dL (11.7-16.9); LYMPH % 25.5 % (8-40); MCH 29.2 pg (25.7-33.7); MCHC 33.3 g/dl (32.0-35.9); MEAN CELL VOLUME 87.7 fl (80-96); MEAN PLT VOLUME 6.9 fl (7.5-11.1); MONO % 9.6 % (3.8-10.2); NEUT % 61.1 % (42.8-82.8); PLATELET COUNT 198 10^3/uL (134-434); RBC 4.96 M/mm3 (4.00-5.60); RDW 16.6 % (11.9-15.9); WHITE BLOOD COUNT 7.1 K/mm3 (4.0-10.0)
[2024-07-20 18:29] LABS: INR 1.02 (0.83-1.09); PROTHROMBIN TIME (PATIENT) 11.5 SEC (9.7-13.0)
[2024-07-20 18:32] LABS: ACTIVATED PTT 32.7 SECONDS (25.2-36.5)
[2024-07-20 18:49] LABS: POTASSIUM 3.5 mmol/L (3.5-5.1)
[2024-07-20 19:04] LABS: BLOOD UREA NITROGEN 19.3 mg/dL (7-18); CALCIUM 9.5 mg/dL (8.5-10.1)
[2024-07-20 19:07] LABS: ALBUMIN 3.6 g/dl (3.4-5.0)
[2024-07-20 19:08] LABS: CREATININE 1.4 mg/dL (0.55-1.3)
[2024-07-20 19:10] LABS: BILIRUBIN,TOTAL 0.5 mg/dL (0.2-1); TOT PROT 7.2 g/dl (6.4-8.2)
[2024-07-20] MEDS: SODIUM CHLORIDE 1,000 ML IV SCH (20:40)
[2024-07-20 23:01] LABS: BASO % 0.8 % (0-2.0); EOS % 2.8 % (0-4.5); HEMATOCRIT 41.9 % (35.4-49); HEMOGLOBIN 13.8 GM/dL (11.7-16.9); LYMPH % 26.3 % (8-40); MCH 29.3 pg (25.7-33.7); MCHC 32.8 g/dl (32.0-35.9); MEAN CELL VOLUME 89.2 fl (80-96); MEAN PLT VOLUME 6.5 fl (7.5-11.1); MONO % 9.2 % (3.8-10.2); NEUT % 60.9 % (42.8-82.8); PLATELET COUNT 190 10^3/uL (134-434); RDW 16.2 % (11.9-15.9); WHITE BLOOD COUNT 8.1 K/mm3 (4.0-10.0)
[2024-07-20] MEDS ORDERED: TAMSULOSIN HCL 0.4 MG CAP PO PRN (23:33)
[2024-07-21] MEDS: GABAPENTIN 400 MG CAPSULE PO SCH (05:48)
[2024-07-21] MEDS: INSULIN ASPART SLIDING SCALE (NOVOLOG) 1 VIAL SQ SCH (06:00)
[2024-07-21 09:28] LABS: BASO % 0.4 % (0-2.0); EOS % 2.6 % (0-4.5); HEMATOCRIT 36.1 % (35.4-49); HEMOGLOBIN 12.2 GM/dL (11.7-16.9); LYMPH % 25.3 % (8-40); MCH 29.8 pg (25.7-33.7); MCHC 33.7 g/dl (32.0-35.9); MEAN CELL VOLUME 88.4 fl (80-96); MEAN PLT VOLUME 7.2 fl (7.5-11.1); MONO % 8.7 % (3.8-10.2); PLATELET COUNT 158 10^3/uL (134-434); RBC 4.09 M/mm3 (4.00-5.60); RDW 16.2 % (11.9-15.9); WHITE BLOOD COUNT 7.3 K/mm3 (4.0-10.0)
[2024-07-21 09:41] LABS: POTASSIUM 4.5 mmol/L (3.5-5.1)
[2024-07-21 09:46] LABS: ALBUMIN 3.1 g/dl (3.4-5.0); BLOOD UREA NITROGEN 23.8 mg/dL (7-18); CALCIUM 9.2 mg/dL (8.5-10.1)
[2024-07-21 09:48] LABS: CREATININE 1.4 mg/dL (0.55-1.3)
[2024-07-21] MEDS: NEBIVOLOL 10 MG TABLET (FP) PO SCH (09:49)
[2024-07-21] MEDS: PANTOPRAZOLE 20 MG TABLET PO SCH (09:49)
[2024-07-21 09:50] LABS: BILIRUBIN,TOTAL 0.5 mg/dL (0.2-1); PHOSPHOROUS 3.6 mg/dL (2.5-4.9)
[2024-07-21] MEDS: FINASTERIDE 5 MG TABLET (FP) PO SCH (09:50)
[2024-07-21] MEDS: RAMIPRIL 5 MG CAPSULE PO SCH (10:24)
[2024-07-21] MEDS: ALLOPURINOL 300 MG TABLET (FP) PO SCH (10:24)
[2024-07-21] MEDS: FENOFIBRIC ACID 45 MG CAP PO SCH (10:24)
[2024-07-21] MEDS: BISACODYL 5 MG TABLET.DR (FP) PO ONE (11:26)
[2024-07-21] MEDS: POLYETHYLENE GLYCOL 3350 255 GM BTL PO ONE (12:08)
[2024-07-21] MEDS: ALBUTEROL SO4 HFA INHALER IH ONE (15:50)
[2024-07-21] MEDS ORDERED: ALBUTEROL SO4 HFA INHALER IH ONE (16:03)
[2024-07-21] MEDS: ONDANSETRON 4 MG/2 ML VIAL IVPUSH ONE ×2 (17:58→22:24)
[2024-07-21] MEDS: FUROSEMIDE 40 MG/4 ML INJECTABLE VIAL IVPUSH ONE (18:40)
[2024-07-21] MEDS ORDERED: PIPERACILLIN/TAZOB 3.375 GM 3.375 GM in DEXTROSE 5%-WATER - 50 ML IVPB SCH (18:45)
[2024-07-21] MEDS: ALBUTEROL SO4 2.5/IPRATROPIUM 0.5 INH SOL 3 ML VIAL.NEB. NEB ONE (19:01)
[2024-07-21] MEDS: methylPREDNISolone NA SUCC 40 MG/1 ML VIAL IVPUSH ONE (19:13)
[2024-07-21 19:17] LABS: HEMATOCRIT 39.2 % (35.4-49); HEMOGLOBIN 12.8 GM/dL (11.7-16.9); MCHC 32.6 g/dl (32.0-35.9); MEAN CELL VOLUME 88.9 fl (80-96); MEAN PLT VOLUME 7.4 fl (7.5-11.1); PLATELET COUNT 181 10^3/uL (134-434); RBC 4.41 M/mm3 (4.00-5.60); RDW 16.4 % (11.9-15.9)
[2024-07-21] MEDS: PIPERACILLIN/TAZOB 3.375 GM 50 ML IVPB SCH (19:36)
[2024-07-21 19:56] LABS: LACTIC ACID 3.2 mmol/L (0.4-2.0)
[2024-07-21 20:19] LABS: ANISOCYTOSIS 2+; MACROCYTOSIS 2+; OVALOCYTE 1+
[2024-07-21 21:08] LABS: POTASSIUM 3.6 mmol/L (3.5-5.1)
[2024-07-21 21:10] LABS: ALBUMIN 2.9 g/dl (3.4-5.0); CALCIUM 8.5 mg/dL (8.5-10.1)
[2024-07-21 21:11] LABS: BLOOD UREA NITROGEN 24.8 mg/dL (7-18)
[2024-07-21 21:14] LABS: CREATININE 1.4 mg/dL (0.55-1.3)
[2024-07-21 21:15] LABS: BILIRUBIN,TOTAL 0.5 mg/dL (0.2-1); TOT PROT 5.5 g/dl (6.4-8.2)
[2024-07-21 21:18] LABS: ARTERIAL BLOOD GAS BASE EXCESS 0.1 mmol/L (-2-2); ARTERIAL BLOOD GAS PO2 105.4 mmHg (80-100)
[2024-07-21 21:34] LABS: ALLENS TEST POSITIVE
[2024-07-21] MEDS: ACETAMINOPHEN 1000 MG/100 ML BAG IVPB ONE (22:27)
[2024-07-21] MEDS: TAMSULOSIN HCL 0.4 MG CAP PO SCH (22:29)
[2024-07-22 08:11] LABS: HEMATOCRIT 33.5 % (35.4-49); MCH 29.3 pg (25.7-33.7); MEAN CELL VOLUME 88.7 fl (80-96); MEAN PLT VOLUME 7.6 fl (7.5-11.1); PLATELET COUNT 172 10^3/uL (134-434); RBC 3.77 M/mm3 (4.00-5.60); RDW 16.6 % (11.9-15.9); WHITE BLOOD COUNT 13.9 K/mm3 (4.0-10.0)
[2024-07-22 08:23] LABS: POTASSIUM 4.1 mmol/L (3.5-5.1)
[2024-07-22 08:24] LABS: LACTIC ACID 2.4 mmol/L (0.4-2.0)
[2024-07-22 08:41] LABS: ALBUMIN 2.9 g/dl (3.4-5.0); BLOOD UREA NITROGEN 28.6 mg/dL (7-18); CALCIUM 8.8 mg/dL (8.5-10.1)
[2024-07-22 08:46] LABS: BILIRUBIN,TOTAL 0.8 mg/dL (0.2-1); TOT PROT 5.9 g/dl (6.4-8.2)
[2024-07-22 09:10] LABS: EPI CELLS 3 /uL (0-25.1); HYALINE CASTS 1 /uL (0-3.1); URINE APPEARANCE CLEAR; URINE BACTERIA 15 /uL (0-1359); URINE BILIRUBIN NEGATIVE (NEGATIVE); URINE COLOR YELLOW; URINE GLUCOSE (UA) 3+ (NEGATIVE); URINE KETONE TRACE (NEGATIVE); URINE LEUK ESTERASE NEGATIVE (NEGATIVE); URINE NITRITE NEGATIVE (NEGATIVE); URINE PROTEIN 1+ (NEGATIVE); URINE RBC 22 /uL (0-23.9); URINE UROBILINOGEN 0.2 mg/dL (0.2-1.0); URINE WBC 6 /uL (0-25.8)
[2024-07-22] MEDS: DEXTROSE 5%-LACTATED RINGERS 1,000 ML IV SCH (09:15)
[2024-07-22] MEDS: ALBUTEROL SO4 2.5/IPRATROPIUM 0.5 INH SOL 3 ML VIAL.NEB. NEB SCH (11:46)
[2024-07-22] MEDS: LACTATED RINGERS SOLUTION 1,000 ML/1,000 ML INFUS.BAG IV SCH (11:50)
[2024-07-22 13:03] LABS: HEMATOCRIT 32.6 % (35.4-49); HEMOGLOBIN 10.7 GM/dL (11.7-16.9); MCH 29.4 pg (25.7-33.7); MEAN CELL VOLUME 89.2 fl (80-96); MEAN PLT VOLUME 7.3 fl (7.5-11.1); PLATELET COUNT 199 10^3/uL (134-434); RBC 3.66 M/mm3 (4.00-5.60); RDW 16.7 % (11.9-15.9); WHITE BLOOD COUNT 12.3 K/mm3 (4.0-10.0)
[2024-07-22] MEDS: methylPREDNISolone NA SUCC 40 MG/1 ML VIAL IVPUSH ONE (17:14)
[2024-07-22 17:41] LABS: ARTERIAL BLD GAS O2 SATURATION 94.4 % (95-98); ARTERIAL BLOOD GAS BASE EXCESS 3.1 mmol/L (-2-2); ARTERIAL BLOOD GAS PO2 70.2 mmHg (80-100); ARTERIAL BLOOD GAS pH 7.425 (7.350-7.450)
[2024-07-22] MEDS ORDERED: methylPREDNISolone NA SUCC 40 MG/1 ML VIAL IVPUSH ONE (18:00)
[2024-07-22 18:39] LABS: BASO % 0.1 % (0-2.0); EOS % 0.7 % (0-4.5); HEMATOCRIT 26.8 % (35.4-49); HEMOGLOBIN 8.8 GM/dL (11.7-16.9); LYMPH % 17.9 % (8-40); MEAN CELL VOLUME 88.1 fl (80-96); MEAN PLT VOLUME 7.4 fl (7.5-11.1); MONO % 10.9 % (3.8-10.2); NEUT % 70.4 % (42.8-82.8); PLATELET COUNT 173 10^3/uL (134-434); RBC 3.04 M/mm3 (4.00-5.60); RDW 16.5 % (11.9-15.9); WHITE BLOOD COUNT 9.2 K/mm3 (4.0-10.0)
[2024-07-22] MEDS: AZITHROMYCIN IVPB 500 MG in DEXTROSE 5%-WATER - 250 ML IVPB SCH (18:49)
[2024-07-22 18:55] LABS: POTASSIUM 3.6 mmol/L (3.5-5.1)
[2024-07-22 18:56] LABS: CALCIUM 8.4 mg/dL (8.5-10.1)
[2024-07-22 18:57] LABS: BLOOD UREA NITROGEN 36.5 mg/dL (7-18)
[2024-07-22 19:00] LABS: CREATININE 2.3 mg/dL (0.55-1.3)
[2024-07-22 19:06] LABS: LACTIC ACID 2.4 mmol/L (0.4-2.0)
[2024-07-23] MEDS: PIPERACILLIN/TAZOB 3.375 GM 50 ML IVPB SCH (01:59)
[2024-07-23 07:14] LABS: HEMATOCRIT 26.2 % (35.4-49); HEMOGLOBIN 8.5 GM/dL (11.7-16.9); LYMPH % 9.4 % (8-40); MCH 29.2 pg (25.7-33.7); MCHC 32.6 g/dl (32.0-35.9); MEAN CELL VOLUME 89.7 fl (80-96); MEAN PLT VOLUME 7.5 fl (7.5-11.1); MONO % 6.5 % (3.8-10.2); NEUT % 84.1 % (42.8-82.8); PLATELET COUNT 151 10^3/uL (134-434); RBC 2.92 M/mm3 (4.00-5.60); RDW 16.2 % (11.9-15.9); WHITE BLOOD COUNT 8.3 K/mm3 (4.0-10.0)
[2024-07-23 07:28] LABS: POTASSIUM 4.3 mmol/L (3.5-5.1)
[2024-07-23 07:38] LABS: BLOOD UREA NITROGEN 32.8 mg/dL (7-18); CALCIUM 8.6 mg/dL (8.5-10.1)
[2024-07-23 07:39] LABS: MAGNESIUM 2.1 mg/dL (1.8-2.4)
[2024-07-23 07:41] LABS: ALBUMIN 2.5 g/dl (3.4-5.0)
[2024-07-23 07:42] LABS: BILIRUBIN,TOTAL 0.5 mg/dL (0.2-1); CREATININE 2.1 mg/dL (0.55-1.3); PHOSPHOROUS 4.7 mg/dL (2.5-4.9)
[2024-07-23 07:43] LABS: TOT PROT 5.3 g/dl (6.4-8.2)
[2024-07-23] MEDS: AZITHROMYCIN IVPB 500 MG/250 ML BAG IVPB SCH (10:10)
[2024-07-24 07:04] LABS: POTASSIUM 3.7 mmol/L (3.5-5.1)
[2024-07-24 07:07] LABS: CALCIUM 8.8 mg/dL (8.5-10.1)
[2024-07-24 07:08] LABS: ALBUMIN 2.5 g/dl (3.4-5.0); BLOOD UREA NITROGEN 25.2 mg/dL (7-18)
[2024-07-24 07:11] LABS: CREATININE 1.7 mg/dL (0.55-1.3); PHOSPHOROUS 2.9 mg/dL (2.5-4.9)
[2024-07-24 07:13] LABS: BILIRUBIN,TOTAL 0.5 mg/dL (0.2-1); TOT PROT 5.4 g/dl (6.4-8.2)
[2024-07-24 07:32] LABS: BASO % 0.3 % (0-2.0); EOS % 2.2 % (0-4.5); HEMATOCRIT 25.2 % (35.4-49); HEMOGLOBIN 8.2 GM/dL (11.7-16.9); LYMPH % 19.4 % (8-40); MCHC 32.6 g/dl (32.0-35.9); MEAN PLT VOLUME 7.5 fl (7.5-11.1); MONO % 7.3 % (3.8-10.2); NEUT % 70.8 % (42.8-82.8); PLATELET COUNT 148 10^3/uL (134-434); RBC 2.83 M/mm3 (4.00-5.60); RDW 16.2 % (11.9-15.9)
[2024-07-24 15:57] VITALS: BP 126/80; RESP 18; TEMP 98.2
[2024-07-24] MEDS: AMOX TR/POT CLAV 875MG/125MG TABLETS (FP) PO SCH (18:23)
[2024-07-24 19:10] VITALS: PULSE 98
[2024-07-24] MEDS: ALBUTEROL SO4 2.5/IPRATROPIUM 0.5 INH SOL 3 ML VIAL.NEB. NEB SCH (20:50)
[2024-07-24] MEDS ORDERED: GABAPENTIN 400 MG CAPSULE PO SCH (22:00)
[2024-07-24] MEDS ORDERED: TAMSULOSIN HCL 0.4 MG CAP PO SCH (22:00)
[2024-07-25] MEDS ORDERED: INSULIN ASPART SLIDING SCALE (NOVOLOG) 1 VIAL SQ SCH (07:00)
[2024-07-25] MEDS ORDERED: ALLOPURINOL 300 MG TABLET (FP) PO SCH (10:00)
[2024-07-25] MEDS ORDERED: AMOX TR/POT CLAV 875MG/125MG TABLETS (FP) PO SCH ×2 (10:00→18:00)
[2024-07-25] MEDS ORDERED: FENOFIBRIC ACID 45 MG CAP PO SCH (10:00)
[2024-07-25] MEDS ORDERED: FINASTERIDE 5 MG TABLET (FP) PO SCH (10:00)
[2024-07-25] MEDS ORDERED: PANTOPRAZOLE 20 MG TABLET PO SCH (10:00)
== END 2024-07-24 20:25 | disposition left against medical advice (07) | DRG 919 ==
LOC: JER 17:09 → JERBED 19:15 → J6S 23:15 → J4W 07-21 21:06 → OBSVTOIN 07-22 11:53 → J6S 07-24 17:15
PROVIDERS: ADMIT Internal Medicine; ATTEND Internal Medicine
PROC: 0W3P8ZZ Control Bleeding in Gastrointestinal Tract, Via Natural or Artificial Opening Endoscopic (ICD-10-PCS; principal; 2024-07-21 15:45)
DX: K91.840 Postprocedural hemorrhage of a digestive system organ or structure following a digestive system procedure (principal); G93.41 Metabolic encephalopathy; J96.01 Acute respiratory failure with hypoxia; J69.0 Pneumonitis due to inhalation of food and vomit; D62 Acute posthemorrhagic anemia; N17.9 Acute kidney failure, unspecified; E87.20 Acidosis, unspecified; I12.9 Hypertensive chronic kidney disease with stage 1 through stage 4 chronic kidney disease, or unspecified chronic kidney disease; E11.22 Type 2 diabetes mellitus with diabetic chronic kidney disease; N18.9 Chronic kidney disease, unspecified; I25.10 Atherosclerotic heart disease of native coronary artery without angina pectoris; E78.5 Hyperlipidemia, unspecified; Y83.9 Surgical procedure, unspecified as the cause of abnormal reaction of the patient, or of later complication, without mention of misadventure at the time of the procedure; K21.9 Gastro-esophageal reflux disease without esophagitis
CPT/HCPCS: 36415; 36600; 71045-TC-FY; 74018-TC-FY; 80048; 80053; 81003; 82803; 82962; 83036; 83605; 83735; 84100; 84484; 85025; 85027; 85045; 85610; 85730; 86850; 86900; 86901; 87040; 87086; 88305-TC; 88341-TC; 88342-TC; 93005; 93010; 93306-TC; 94640; 97116-GP; 97161-GP; 99285-25; G0378; J0131